=== PATIENT | female | born 1975 | race Caucasian/White ===

== ENCOUNTER 2018-07-06 21:52 | Emergency (ER) | payer OTHER ==
[~2018-07-06] VITALS: Ht 162.6 cm; Wt 85.7 kg
[~2018-07-06 21:52] MED LIST: ASPI-1821 PO; CHOL20001 PO; LISI40TA4 PO; NIFE30TE8 PO
[2018-07-06 21:54] VITALS: BP 153/91
--- NOTE | 2018-07-06 22:05 | NUR ---
PT AMBULATED TO ER BED 12
[2018-07-06] MEDS ORDERED: cefTRIAXone 1,000 MG in LIDOCAINE MPF 1% - 5 mL VIAL 2.1 ML IM ONE (22:15)
[2018-07-06] MEDS ORDERED: PHENAZOPYRIDINE 100 MG TAB PO ONE (22:15)
--- NOTE | 2018-07-06 22:17 | NUR ---
C/O DYSURIA, URINARY FREQUENCY AND URGENCY, STARTED AT 1730.
[2018-07-06 22:33] VITALS: BP 153/91
--- NOTE | 2018-07-06 22:33 | NUR ---
Patient discharged with v/s stable. Written and verbal after care instructions given and explained. Patient alert, oriented and verbalized understanding of instructions. Ambulatory with steady gait. All questions addressed prior to discharge. ID band removed. Patient advised to follow up with PMD. Rx of BACTRIM, PYRIDIUM given. Patient educated on indication of medication including possible reaction and side effects. Opportunity to ask questions provided and answered.
== END 2018-07-06 22:33 | disposition home or self-care (01) ==
LOC: MED 21:52
DX: N39.0 Urinary tract infection, site not specified (principal); I10 Essential (primary) hypertension; Z79.82 Long term (current) use of aspirin; Z79.899 Other long term (current) drug therapy; Z88.8 Allergy status to other drugs, medicaments and biological substances
CPT/HCPCS: 81002; 81025; 96372; 99283; J0696; J2001

== ENCOUNTER 2019-02-11 20:49 | Emergency (ER) | payer OTHER ==
[~2019-02-11] VITALS: Ht 157.5 cm; Wt 85.7 kg
[2019-02-11 21:10] VITALS: BP 146/89
--- NOTE | 2019-02-11 21:13 | NUR ---
TO LOBBY A/W BED AMBULATORY
--- NOTE | 2019-02-11 21:49 | NUR ---
PT TAKEN TO CHAIR D
--- NOTE | 2019-02-11 21:50 | NUR ---
PT CAME INTO ER WITH C/O URINARY BURNING STARTING TODAY. PT IS ALERT AND ABLE TO ANSWER QUESTIONS APPROPRIATELY. PT PAIN LEVEL IS 7/10 AT THIS TIME. PT DENIES ANY FLANK PAIN, N/V OR FEVER. PT WAS ABLE TO GIVE A U/A SPECIMEN. ERMD MADE AWARE OF STATUS. SAFETY MEASURES IN PLACE.
[2019-02-11 21:57] VITALS: BP 146/89
--- NOTE | 2019-02-11 21:57 | NUR ---
Patient discharged with v/s stable. Written and verbal after care instructions given and explained. Patient alert, oriented and verbalized understanding of instructions. Ambulatory with steady gait. All questions addressed prior to discharge. ID band removed. Patient advised to follow up with PMD. Rx of MACROBID AND PYRIDIUM WAS given. Patient educated on indication of medication including possible reaction and side effects. Opportunity to ask questions provided and answered. PT STATED HER PAIN WAS 5/10 PRIOR TO D/C. PT WAS EDUCATED ON THE SIDE EFFECTS OF THE MEDICATION PRESCRIPTIONS THAT WEE GIVEN. PT UNDERSTOOD.
[2019-02-11 22:18] LABS: APPEARANCE,URINE SL CLOUDY (CLEAR); BILIRUBIN,URINE NEGATIVE (NEGATIVE); BLOOD, URINE 3+ (NEGATIVE); COLOR,URINE YELLOW (YELLOW); LEUKOCYTE ESTERASE ,URINE 2+ (NEGATIVE); NITRITE, URINE NEGATIVE (NEGATIVE); UGLUCOSE NEGATIVE (NEGATIVE)
[2019-02-11 22:48] LABS: RBC,URINE 11-20 (MOD) /HPF (0-5); WBC,URINE 60-80 /HPF (0-5)
== END 2019-02-11 21:57 | disposition home or self-care (01) ==
LOC: MED 20:49
DX: N39.0 Urinary tract infection, site not specified (principal); I10 Essential (primary) hypertension; Z79.899 Other long term (current) drug therapy; Z79.82 Long term (current) use of aspirin; Z88.6 Allergy status to analgesic agent
CPT/HCPCS: 81001; 87086; 99283

== ENCOUNTER 2019-02-12 10:04 | Emergency (ER) | payer OTHER ==
[~2019-02-12] VITALS: Ht 157.5 cm; Wt 85.7 kg
--- NOTE | 2019-02-12 10:10 | NUR ---
Patient ambulated to bed 4. RN evaluating patient at bedside.
--- NOTE | 2019-02-12 10:11 | NUR ---
Dr. King is evaluating the patient at bedside.
[2019-02-12 10:13] VITALS: BP 140/82
--- NOTE | 2019-02-12 10:17 | NUR ---
44 Y/O FEMALE PRESENTING WTIH C/C OF SOB AND ANXIETY X2 DAYS. PER PT WAS AT WORK WHEN SHE "WAS HAVING A PANIC ATTACK" PER PT ALLERGIES TO NAPROXEN. MEDICAL HX OF HTN. TAKES MED ON REG BASIS FOR HTN. DENIES N/V/D. SIDE RAIL X1.
--- NOTE | 2019-02-12 10:53 | NUR ---
Dr. King is evaluating the patient at bedside.
[2019-02-12 11:00] VITALS: BP 140/82
== END 2019-02-12 11:00 | disposition home or self-care (01) ==
LOC: MED 10:04
DX: F41.9 Anxiety disorder, unspecified (principal); R06.02 Shortness of breath; I10 Essential (primary) hypertension; Z79.82 Long term (current) use of aspirin; Z79.899 Other long term (current) drug therapy; Z88.8 Allergy status to other drugs, medicaments and biological substances
CPT/HCPCS: 99284

== ENCOUNTER 2019-04-08 08:10 | Emergency (ER) | payer OTHER ==
[~2019-04-08] VITALS: Ht 157.5 cm; Wt 86.2 kg
[2019-04-08 08:24] VITALS: BP 138/96
--- NOTE | 2019-04-08 08:24 | NUR ---
Patient ambulated to bed 10. RN evaluating patient at bedside.
--- NOTE | 2019-04-08 08:30 | NUR ---
44 Y/O F C/C LOWER ABDOMINAL PAIN 07/13 SINCE 0300 HOURS TODAY. PER PT BELIEVES ITS UTI. HAS TAKEN PHENAZOPYRIDINE AT HOME. PT ALLERGIES NAPROXEN. HX HTN. RX LISINOPRIL,ASA. NO N/V/D. SIDE RAIL X1. BS NORMOACTIVE.
--- NOTE | 2019-04-08 09:16 | NUR ---
URINE DIP AND HCG COMPLETE. RESULTS GIVEN TO
--- NOTE | 2019-04-08 10:14 | NUR ---
Dr. King is evaluating the patient at bedside.
[2019-04-08 10:25] VITALS: BP 138/96
== END 2019-04-08 10:26 | disposition home or self-care (01) ==
LOC: MED 08:10
DX: N39.0 Urinary tract infection, site not specified (principal); I10 Essential (primary) hypertension; Z90.49 Acquired absence of other specified parts of digestive tract; Z79.82 Long term (current) use of aspirin; Z79.899 Other long term (current) drug therapy; Z88.8 Allergy status to other drugs, medicaments and biological substances
CPT/HCPCS: 81002; 81025; 99283

== ENCOUNTER 2020-05-20 05:09 | Emergency (ER) | payer OTHER ==
[~2020-05-20] VITALS: Ht 157.5 cm; Wt 78.9 kg
[~2020-05-20 05:09] MED LIST changes: +LISI40TA10 PO; -LISI40TA4 PO; +NIFE30TA36 PO; -NIFE30TE8 PO
[2020-05-20 05:14] VITALS: BP 146/90
--- NOTE | 2020-05-20 05:14 | NUR ---
to bed ambulatory
--- NOTE | 2020-05-20 05:24 | NUR ---
PATIENT BIB SELF C/O LEFT LEG NUMBNESS X 1 DAY WITH PAIN 5/10 THAT RADIATES TO LEFT LOWER BACK, STATING IT FEELS "SHARP/DULL/BURNING". PATIENT DENIES INJURY TO LLE. NO NOTED SWELLING TO LLE. CMS INTACT. SEE COMPLETE ASSESSMENT FOR FURTHER DETAILS. MED HX: HYPERTENSION, GALLSTONES ALLERGIES: NAPROXIN
--- NOTE | 2020-05-20 05:28 | NUR ---
Dr. Hugo examining patient.
--- NOTE | 2020-05-20 05:45 | NUR ---
Patient discharged with v/s stable. Written and verbal after care instructions given and explained. Patient verbalized understanding. Ambulatory with steady gait. All questions addressed prior to discharge. Advised to follow up with PMD.
[2020-05-20 05:47] VITALS: BP 146/90
== END 2020-05-20 05:45 | disposition home or self-care (01) ==
LOC: MED 05:09
DX: M54.42 Lumbago with sciatica, left side (principal); I10 Essential (primary) hypertension; Z88.8 Allergy status to other drugs, medicaments and biological substances; Z79.899 Other long term (current) drug therapy; Z79.82 Long term (current) use of aspirin
CPT/HCPCS: 99282

== ENCOUNTER 2022-06-10 18:28 | Emergency (ER) | payer OTHER ==
[~2022-06-10] VITALS: Ht 157.5 cm; Wt 83.9 kg
[~2022-06-10 18:28] MED LIST changes: -CHOL20001 PO; +CHOL200047 PO; -LISI40TA10 PO; +LISI40TA14 PO
[2022-06-10 19:08] VITALS: BP 185/80
[2022-06-10 19:36] LABS: BASOPHILS % (AUTO) 0.3 % (0.0-2.0); EOSINOPHILS # (AUTO) 0.1 K/uL (0-0.4); EOSINOPHILS % (AUTO) 1.8 % (0.0-4.0); HEMATOCRIT 34.7 % (36-48); HEMOGLOBIN 11.5 g/dL (12.0-16.0); LYMPHOCYTES # (AUTO) 1.7 K/uL (2.5-16.5); LYMPHOCYTES % (AUTO) 23.3 % (20.5-51.1); MEAN CORPUSCULAR HEMOGLOBIN 25 pg (27-31); MEAN CORPUSCULAR HGB CONC 33 g/dL (33-37); MEAN CORPUSCULAR VOLUME 76.2 fL (80-94); MONOCYTES # (AUTO) 0.6 K/uL (0.8-1.0); MONOCYTES % (AUTO) 8.7 % (1.7-9.3); NEUTROPHILS # (AUTO) 4.9 K/uL (1.8-7.7); NEUTROPHILS % (AUTO) 65.9 % (42.2-75.2); PLATELET COUNT (AUTO) 321 K/uL (140-450); RED BLOOD CELL COUNT(AUTO) 4.55 MIL/uL (4.20-5.40); WHITE BLOOD COUNT (AUTO) 7.5 K/uL (4.8-10.8)
[2022-06-10 19:58] LABS: ALBUMIN 3.6 g/dL (3.4-5.0); ANION GAP 13.5 (8-16); CARBON DIOXIDE 25.9 mmol/L (21-32); CREATININE 0.8 mg/dL (0.6-1.3); POTASSIUM 3.4 mmol/L (3.5-5.1); TOTAL BILIRUBIN 0.2 mg/dL (0.0-1.0)
[2022-06-10] MEDS ORDERED: FERR325E14 PO (22:24)
[2022-06-10] MEDS ORDERED: IBUP-2213 PO (22:24)
--- NOTE | 2022-06-10 22:53 | NUR ---
Patient discharged with v/s stable. Written and verbal after care instructions given and explained. Patient alert, oriented and verbalized understanding of instructions. Ambulatory with steady gait. All questions addressed prior to discharge. ID band removed. Patient advised to follow up with PMD. Rx of MOTRIN AND FERROUS SULFATE given. Patient educated on indication of medication including possible reaction and side effects. Opportunity to ask questions provided and answered.
== END 2022-06-10 22:53 | disposition home or self-care (01) ==
LOC: MED 18:28
DX: N93.8 Other specified abnormal uterine and vaginal bleeding (principal); D64.9 Anemia, unspecified; D25.9 Leiomyoma of uterus, unspecified; I10 Essential (primary) hypertension; Z88.8 Allergy status to other drugs, medicaments and biological substances; Z79.899 Other long term (current) drug therapy
CPT/HCPCS: 36415; 76856; 80053; 85025; 99284

== ENCOUNTER 2022-10-19 10:59 | Emergency (ER) | payer OTHER ==
[~2022-10-19] VITALS: Ht 162.6 cm; Wt 79.4 kg
[~2022-10-19 10:59] MED LIST changes: +FERR325E14 PO; +IBUP-2213 PO
[2022-10-19 11:34] VITALS: BP 156/98; PULSE 87; RESP 18; TEMP 98; O2SAT 98
[2022-10-19] MEDS: KETOROLAC 30 MG/ML VIAL IM ONE (12:43)
[2022-10-19 14:30] VITALS: BP 139/88; PULSE 81; RESP 18; TEMP 98; O2SAT 98
== END 2022-10-19 14:30 | disposition home or self-care (01) ==
LOC: MED 10:59
DX: D25.9 Leiomyoma of uterus, unspecified (principal); N92.1 Excessive and frequent menstruation with irregular cycle; I10 Essential (primary) hypertension; Z98.890 Other specified postprocedural states; Z79.899 Other long term (current) drug therapy; Z79.82 Long term (current) use of aspirin; Z88.6 Allergy status to analgesic agent
CPT/HCPCS: 76830; 81002; 81025; 93976; 96372; 99285; J1885; Q0092

== ENCOUNTER 2023-03-19 11:28 | Observation (INO) | payer OTHER ==
[~2023-03-19] VITALS: Ht 157.5 cm; Wt 78.0 kg
[2023-03-19 11:48] VITALS: BP 112/68; PULSE 99; RESP 18; TEMP 98.5; O2SAT 96
[2023-03-19] MEDS ORDERED: KETOROLAC 30 MG/ML VIAL IM ONE (12:40)
[2023-03-19 12:43] LABS: BASOPHILS % (AUTO) 0.2 % (0.0-2.0); EOSINOPHILS % (AUTO) 0.3 % (0.0-4.0); HEMATOCRIT 37.2 % (36-48); LYMPHOCYTES # (AUTO) 1.4 K/uL (2.5-16.5); MEAN CORPUSCULAR HEMOGLOBIN 25 pg (27-31); MEAN CORPUSCULAR HGB CONC 32 g/dL (33-37); MEAN CORPUSCULAR VOLUME 77.1 fL (80-94); MONOCYTES # (AUTO) 0.8 K/uL (0.8-1.0); MONOCYTES % (AUTO) 4.5 % (1.7-9.3); NEUTROPHILS # (AUTO) 15.3 K/uL (1.8-7.7); PLATELET COUNT (AUTO) 281 K/uL (140-450); RED BLOOD CELL COUNT(AUTO) 4.83 MIL/uL (4.20-5.40); WHITE BLOOD COUNT (AUTO) 17.5 K/uL (4.8-10.8)
[2023-03-19 13:05] LABS: ALBUMIN 3.4 g/dL (3.4-5.0); ANION GAP 12.9 (8-16); CALCIUM 9.1 mg/dL (8.5-10.1); CARBON DIOXIDE 24.7 mmol/L (21-32); CREATININE 0.7 mg/dL (0.6-1.3); POTASSIUM 3.6 mmol/L (3.5-5.1); TOTAL BILIRUBIN 0.6 mg/dL (0.0-1.0); TOTAL PROTEIN, SERUM 7.1 g/dL (6.4-8.2)
[2023-03-19 13:17] LABS: APPEARANCE,URINE SL CLOUDY (CLEAR); BILIRUBIN,URINE NEGATIVE (NEGATIVE); BLOOD, URINE NEGATIVE (NEGATIVE); COLOR,URINE YELLOW (YELLOW); LEUKOCYTE ESTERASE ,URINE NEGATIVE (NEGATIVE); NITRITE, URINE NEGATIVE (NEGATIVE); PH,URINE 6.5 (5.0-9.0); PROTEIN,URINE TRACE (NEGATIVE); UGLUCOSE NEGATIVE (NEGATIVE); UROBILINOGEN,URINE 0.2 EU/dL (0.2 - 1)
[2023-03-19 13:47] LABS: LACTIC ACID 0.6 mmol/L (0.4-2.0)
[2023-03-19] MEDS ORDERED: MORPHINE SULFATE 4 MG/ML SYR IVP ONE (13:55)
[2023-03-19] MEDS ORDERED: PIPERACILLIN/TAZOBACTAM 3.375 GM in DEXTROSE 5% 50 ML IV ONE (13:55)
[2023-03-19] MEDS ORDERED: NACL 0.9% 1,500 ML IV ONE (13:55)
[2023-03-19] MEDS ORDERED: ONDANSETRON 4 MG/2 ML VIAL IVP ONE (13:55)
[2023-03-19] MEDS ORDERED: PIPERACILLIN/TAZOBACTAM 3.375 GM VIAL IV ONE ×2 (14:06→20:33)
[2023-03-19] MEDS ORDERED: ACETAMINOPHEN 325 MG TAB PO PRN (14:20)
[2023-03-19] MEDS ORDERED: MORPHINE SULFATE 2 MG/ML SYR IVP PRN (14:20)
[2023-03-19] MEDS ORDERED: MORPHINE SULFATE 4 MG/ML SYR IVP PRN (14:20)
[2023-03-19] MEDS ORDERED: ONDANSETRON 4 MG/2 ML VIAL IVP PRN ×2 (14:20→16:55)
[2023-03-19] MEDS ORDERED: NIFE60TE5 PO (14:48)
[2023-03-19] MEDS ORDERED: LOSA-272 PO (14:50)
[2023-03-19] MEDS ORDERED: BUPIVACAINE-MPF 0.25% 30 ML VIAL INJ ONE (15:37)
[2023-03-19] MEDS: LACTATED RINGERS 1,000 ML IV SCH (15:41)
[2023-03-19] MEDS ORDERED: PROPOFOL 200 MG/20 ML VIAL IV ONE (15:43)
[2023-03-19] MEDS ORDERED: NEOSTIGMINE 1:1000 10 MG/10 ML VIAL ONE (15:45)
[2023-03-19] MEDS ORDERED: ROCURONIUM 50 MG/5 ML VIAL IV ONE (15:45)
[2023-03-19] MEDS ORDERED: SEVOFLURANE 250 ML BTL INH ONE (15:45)
[2023-03-19] MEDS ORDERED: HYDROmorphone PFS 2 MG/ML SYR ONE (15:45)
[2023-03-19] MEDS ORDERED: SUCCINYLCHOLINE CHLORIDE 200 MG/10 ML VIAL IVP ONE (15:45)
[2023-03-19] MEDS ORDERED: GLYCOPYRROLATE 0.2 MG/ML VIAL ONE (15:45)
[2023-03-19] MEDS ORDERED: MIDAZOLAM 2 MG/2 ML VIAL ONE (15:54)
[2023-03-19] MEDS ORDERED: LIDOCAINE/EPI 1% 1:100000 20 ML VIAL INJ ONE (16:16)
[2023-03-19] MEDS ORDERED: DEXAMETHASONE 4 MG/ML VIAL ONE ×2 (16:19)
[2023-03-19] MEDS ORDERED: ONDANSETRON 4 MG/2 ML VIAL ONE (16:19)
[2023-03-19] MEDS ORDERED: KETOROLAC 30 MG/ML VIAL ONE (16:51)
[2023-03-19] MEDS ORDERED: MEPERIDINE 25 MG/ML SYR IVP PRN (16:55)
[2023-03-19] MEDS ORDERED: HYDROmorphone 1 MG/ML AMP IVP PRN (16:55)
[2023-03-19 17:35] VITALS: RESP 17; O2SAT 94
[2023-03-19 20:00] VITALS: BP 115/73; PULSE 82; RESP 18; TEMP 97.5; O2SAT 93
[2023-03-19] MEDS: PIPERACILLIN/TAZOBACTAM 3.375 GM in DEXTROSE 5% 50 ML IV SCH (20:45)
[2023-03-19] MEDS: HYDROcodone/APAP 5/325 MG 1 TAB TAB PO PRN (23:30)
[2023-03-20] MEDS: LACTATED RINGERS 1,000 ML IV SCH (03:07)
[2023-03-20 04:00] VITALS: BP 98/61; PULSE 94; RESP 18; TEMP 98.6; O2SAT 94
[2023-03-20] MEDS ORDERED: PIPERACILLIN/TAZOBACTAM 3.375 GM VIAL IV ONE (04:32)
[2023-03-20] MEDS: PIPERACILLIN/TAZOBACTAM 3.375 GM in DEXTROSE 5% 50 ML IV SCH ×2 (04:55→13:04)
[2023-03-20] MEDS: HYDROcodone/APAP 5/325 MG 1 TAB TAB PO PRN (05:04)
[2023-03-20 07:10] LABS: ANION GAP 15.3 (8-16); CALCIUM 8.3 mg/dL (8.5-10.1); CARBON DIOXIDE 21.3 mmol/L (21-32); CREATININE 0.8 mg/dL (0.6-1.3); POTASSIUM 3.6 mmol/L (3.5-5.1)
[2023-03-20 08:00] VITALS: BP_SYST 105; BP_SYST 95; BP_DIAS 54; BP_DIAS 65; PULSE 82; PULSE 84; RESP 18; TEMP 98; O2SAT 93; O2SAT 99
[2023-03-20 08:49] LABS: HEMATOCRIT 26.4 % (36-48); HEMOGLOBIN 8.6 g/dL (12.0-16.0); LYMPHOCYTES # (AUTO) 0.5 K/uL (2.5-16.5); LYMPHOCYTES % (AUTO) 3.1 % (20.5-51.1); MEAN CORPUSCULAR HEMOGLOBIN 25 pg (27-31); MEAN CORPUSCULAR HGB CONC 33 g/dL (33-37); MEAN CORPUSCULAR VOLUME 77.3 fL (80-94); MONOCYTES # (AUTO) 0.7 K/uL (0.8-1.0); MONOCYTES % (AUTO) 3.9 % (1.7-9.3); NEUTROPHILS # (AUTO) 15.8 K/uL (1.8-7.7); PLATELET COUNT (AUTO) 252 K/uL (140-450); RED BLOOD CELL COUNT(AUTO) 3.41 MIL/uL (4.20-5.40); RED CELL DISTRIBUTION WIDTH 17.7 % (11.6-13.7)
[2023-03-20] MEDS ORDERED: lisinopriL 20 MG TAB PO SCH (09:00)
[2023-03-20] MEDS ORDERED: NIFEdipine 30 MG TABER PO SCH (09:00)
[2023-03-20] MEDS ORDERED: AMOX1TAB8 PO (14:41)
[2023-03-20 15:57] VITALS: BP 105/65; PULSE 84; RESP 18; TEMP 98
[2023-03-20 16:09] VITALS: O2SAT 100
== END 2023-03-20 17:15 | disposition home or self-care (01) ==
LOC: MED 11:28 → MMU 14:24 → MTU 15:29
PROVIDERS: ADMIT Internal Medicine; ATTEND Internal Medicine
DX: K35.80 Unspecified acute appendicitis (principal); I10 Essential (primary) hypertension; D72.829 Elevated white blood cell count, unspecified; Z90.710 Acquired absence of both cervix and uterus; Z79.899 Other long term (current) drug therapy
CPT/HCPCS: 36415; 44970; 74176; 80048; 80053; 81003; 83605; 83690; 85025; 87040; 87081; 88304; 94760; 96365; 96366; 96375; G0378; J0330; J1100; J1170; J1885; J2001; J2250; J2270; J2405; J2543; J2704; J2710; J3490; J7030; J7120; J7060